=== PATIENT | male | born 1985 | race Caucasian/White ===

== ENCOUNTER 2018-04-02 09:46 | Emergency (ER) | payer OTHER ==
[~2018-04-02] VITALS: Ht 167.6 cm; Wt 98.2 kg
[2018-04-02 09:51] VITALS: BP 136/85; PULSE 88; TEMP 98.8
== END 2018-04-02 10:25 | disposition home or self-care (01) ==
LOC: COL.ER 09:46
DX: H02.402 Unspecified ptosis of left eyelid (principal); G43.909 Migraine, unspecified, not intractable, without status migrainosus; Z92.89 Personal history of other medical treatment

== ENCOUNTER 2018-04-28 07:33 | Day surgery (SDC) | payer OTHER ==
[~2018-04-28] VITALS: Ht 167.6 cm; Wt 100.8 kg
[2018-04-28] MEDS ORDERED: EFFEXOR-XR150 MG PO (08:28)
[2018-04-28] MEDS ORDERED: REQUIP 1MG T1 MG/TAB PO (08:28)
[2018-04-28] MEDS ORDERED: VTAMINC250TA PO (08:29)
[2018-04-28] MEDS ORDERED: PROFERRIN ES12 MG PO (08:29)
[2018-04-28 08:30] VITALS: BP 134/96; PULSE 79; TEMP 98.1
[2018-04-28] MEDS ORDERED: PRILOSEC 20MG20 MG PO (10:28)
[2018-04-28 10:33] VITALS: BP 132/83; PULSE 75; TEMP 97.7
[2018-04-28 10:45] VITALS: BP 130/92; PULSE 78
[2018-04-28 11:00] VITALS: BP 120/87; PULSE 71
[2018-04-28] MEDS ORDERED: AMOXICILLIN 50500 MG PO (11:12)
[2018-04-28] MEDS ORDERED: BIAXIN 500MG T500 MG PO (11:12)
[2018-04-28 11:15] VITALS: BP 125/80; PULSE 82
== END 2018-04-28 11:36 | disposition home or self-care (01) ==
LOC: SDCO 07:33
DX: D12.4 Benign neoplasm of descending colon (principal); D12.5 Benign neoplasm of sigmoid colon; K64.0 First degree hemorrhoids; D72.820 Lymphocytosis (symptomatic); K22.2 Esophageal obstruction; K21.0 Gastro-esophageal reflux disease with esophagitis; K44.9 Diaphragmatic hernia without obstruction or gangrene; K29.30 Chronic superficial gastritis without bleeding; K29.60 Other gastritis without bleeding; K26.9 Duodenal ulcer, unspecified as acute or chronic, without hemorrhage or perforation; K29.80 Duodenitis without bleeding; G47.33 Obstructive sleep apnea (adult) (pediatric); M19.011 Primary osteoarthritis, right shoulder; G43.909 Migraine, unspecified, not intractable, without status migrainosus; E61.1 Iron deficiency; I10 Essential (primary) hypertension; Z87.820 Personal history of traumatic brain injury; F43.10 Post-traumatic stress disorder, unspecified; G25.81 Restless legs syndrome
CPT/HCPCS: OP; C1726; J2704; J3010; J7030